=== PATIENT | male | born 1975 | race African-American/Black ===

== ENCOUNTER 2017-11-16 21:04 | Emergency (ER) | payer SELFPAY ==
[~2017-11-16] VITALS: Ht 180.3 cm; Wt 90.1 kg
[2017-11-16 21:24] VITALS: BP 153/103
[2017-11-16 21:54] LABS: HEMATOCRIT 36.6 % (38.0-50.0); HEMOGLOBIN 12.2 G/DL (12.5-16.6); MCH 31.4 PG (29.0-34.0); MCHC 33.3 G/DL (30.0-36.0); MCV 94.1 FL (86-99); PLATELET COUNT 254 K/uL (156-360); RBC DIS.WIDTH-CV 11.7 % (11.8-14.6); RBC DIS.WIDTH-SD 39.8 % (39-53); RED BLOOD COUNT 3.89 M/uL (4.00-5.50)
[2017-11-16 22:04] LABS: CHLORIDE 106 mEq/L (99-109); POTASSIUM 3.9 mEq/L (3.7-5.4); SODIUM 142 mEq/L (136-147)
[2017-11-16 22:05] LABS: GLUCOSE 96 mg/dL (70-99)
[2017-11-16 22:10] LABS: UREA NITROGEN (BUN) 18 mg/dL (9-23)
[2017-11-16 22:15] LABS: TROP-I INTERPRETATION NEGATIVE; TROPONIN-I < 0.01 ng/mL (0.0-0.30)
[2017-11-16 22:16] LABS: GFR ESTIMATE (CALCULATED) > 59 mL/min/ (58.99-99999)
[2017-11-16] MEDS ORDERED: LISINOPRIL10 MG PO (23:11)
== END 2017-11-16 23:30 | disposition home or self-care (01) ==
LOC: EME 21:04
DX: R07.89 Other chest pain (principal); I10 Essential (primary) hypertension; J45.909 Unspecified asthma, uncomplicated; Z87.891 Personal history of nicotine dependence
CPT/HCPCS: 71046; 80048; 84484; 85027; 93005; 99281; 99284